=== PATIENT | male | born 1975 | race African-American/Black ===

== ENCOUNTER 2016-10-24 11:12 | Emergency (ER) | payer MEDICARE, MEDICAID ==
[~2016-10-24 11:12] MED LIST: ALPRAZOLAM2 M3 PO; AMLODIPINE BESY10 M1 PO; ANUSOL-HC25 MG RC; CETIRIZINE HCL10 M1 PO; DYMISTA NASAL S23 G1; LABETALOL HCL100 M1 PO; NEXIUM40 M1 PO; NORCO 5/3251 TAB PO; OXYCODONE-ACET1 EAC3 PO; PERCOCET 5-3251 EACH PO; POTASSIUM CHLO20 ME3 PO; POTASSIUM CHLORIDE; PRISTIQ ER50 MG PO; PROAIR HFA8.5 GM INH; PROCTOSOL HC RC; SINGULAIR10 M1 PO; TRAMADOL HCL50 M2 PO; TYLENOL325 M2 PO; VALIUM5 M1 PO
[2016-10-24 11:38] LABS: URINE BILIRUBIN NEGATIVE (NEG); URINE BLOOD MODERATE (NEG); URINE GLUCOSE (UA) NEGATIVE (NEG); URINE KETONE NEGATIVE (NEG); URINE LEUKOCYTE ESTERASE POSITIVE (NEG); URINE NITRITE NEGATIVE (NEG); URINE PROTEIN SMALL (NEG); URINE SPECIFIC GRAVITY 1.015 (1.003-1.030)
[2016-10-24 11:40] LABS: URINE APPEARANCE CLEAR; URINE COLOR YELLOW
== END 2016-10-24 13:23 ==
LOC: EDMED 11:12
PROVIDERS: Nurse Practitioner Family
DX: M25.511 Pain in right shoulder (principal); E11.9 Type 2 diabetes mellitus without complications; I10 Essential (primary) hypertension; F17.210 Nicotine dependence, cigarettes, uncomplicated; R39.198 Other difficulties with micturition
CPT/HCPCS: J0696